=== PATIENT | male | born 2000 | race Caucasian/White ===

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

== ENCOUNTER 2020-08-21 18:24 | Emergency (ER) | payer SELFPAY ==
[~2020-08-21] VITALS: Ht 177.8 cm; Wt 95.3 kg
[2020-08-21 18:39] VITALS: BP 133/65
[2020-08-21] MEDS ORDERED: IBUPROFEN600 MG PO (21:12)
[2020-08-21] MEDS ORDERED: CEPHALEXIN500 M1 PO (21:12)
== END 2020-08-22 00:14 | disposition home or self-care (01) ==
LOC: ED 18:24
DX: L03.031 Cellulitis of right toe (principal)

== ENCOUNTER 2020-12-01 03:39 | Emergency (ER) | payer SELFPAY ==
[~2020-12-01] VITALS: Ht 177.8 cm; Wt 88.5 kg
[~2020-12-01 03:39] MED LIST changes: +CEPHALEXIN500 M1 PO; +IBUPROFEN600 MG PO
[2020-12-01 03:50] VITALS: BP 139/79
== END 2020-12-01 06:40 | disposition home or self-care (01) ==
LOC: ED 03:39
DX: F41.0 Panic disorder [episodic paroxysmal anxiety] (principal); F17.200 Nicotine dependence, unspecified, uncomplicated; Z79.2 Long term (current) use of antibiotics; Z79.899 Other long term (current) drug therapy

== ENCOUNTER 2020-12-04 22:26 | Emergency (ER) | payer SELFPAY ==
[~2020-12-04] VITALS: Ht 177.8 cm; Wt 88.5 kg
[2020-12-04 22:37] VITALS: BP 131/62
[2020-12-04 23:20] LABS: BASO % 0.5 % (0.0-1.0); EOS # 0.1 10*3/uL (0.0-0.4); EOS % 1.1 % (1.0-4.0); HEMATOCRIT 42.5 % (42.0-52.0); LYMPH # 2.8 10*3/uL (1.3-4.4); LYMPH % 33.2 % (27.0-41.0); MEAN CELL VOLUME 83.5 fl (80.0-94.0); MEAN CORPUSCULAR HGB 27.7 pg (27.0-31.0); MEAN CORPUSCULAR HGB CONC 33.2 g/dl (33.0-37.0); MEAN PLATELET VOLUME 10.5 fl (9.6-12.3); MONO # 0.7 10*3/uL (0.1-1.0); NEUT # 4.9 10*3/uL (2.3-7.9); NEUT % 57.1 % (47.0-73.0); PLATELET COUNT AUTOMATED 239 10*3/uL (130-400); RED BLOOD COUNT 5.09 10*6/uL (4.50-5.90); WHITE BLOOD COUNT 8.5 10*3/uL (4.8-10.8)
[2020-12-04 23:26] LABS: BILIRUBIN Negative (Negative); BLOOD Negative (Negative); CLARITY Clear (Clear); COLOR Yellow (Yellow); GLUCOSE Negative (Negative); KETONE Negative (Negative); LEUKO ESTERASE Negative (Negative); NITRITE Negative (Negative); SPECIFIC GRAVITY 1.025 (1.001-1.030)
[2020-12-04 23:35] LABS: RBC 0-2 rbc/hpf (0-2)
[2020-12-04 23:36] LABS: BACTERIA TRACE
[2020-12-04 23:38] LABS: ALBUMIN 3.9 gm/dl (3.1-4.5); ALKALINE PHOSPHATASE 98 U/L (45-117); BUN 19 mg/dl (7-24); CHLORIDE 108 mmol/L (98-107); CREATININE 0.94 mg/dL (0.70-1.30); LIPASE 67 U/L (73-393); POTASSIUM 3.9 mmol/L (3.5-5.1); SGOT/AST 22 IU/L (3-35); SGPT/ALT 35 U/L (12-78); SODIUM 140 mmol/L (136-145); TOTAL PROTEIN 7.7 gm/dL (6.4-8.2)
== END 2020-12-04 23:51 | disposition home or self-care (01) ==
LOC: ED 22:26
PROVIDERS: Nurse Practitioner Family
DX: R10.32 Left lower quadrant pain (principal)

== ENCOUNTER 2021-04-02 06:18 | Emergency (ER) | payer SELFPAY ==
[~2021-04-02] VITALS: Ht 172.7 cm; Wt 74.4 kg
[2021-04-02 06:25] VITALS: BP 130/79
== END 2021-04-02 06:50 | disposition home or self-care (01) ==
LOC: ED 06:18
DX: L25.9 Unspecified contact dermatitis, unspecified cause (principal); Z79.899 Other long term (current) drug therapy

== ENCOUNTER 2021-05-08 14:51 | Emergency (ER) | payer SELFPAY ==
[~2021-05-08] VITALS: Wt 90.7 kg
[2021-05-08 15:08] VITALS: BP 117/74
[2021-05-08] MEDS ORDERED: METHOCARBAMOL500 M1 PO (18:35)
[2021-05-08] MEDS ORDERED: PREDNISONE20 M1 PO (18:35)
== END 2021-05-08 18:44 | disposition home or self-care (01) ==
LOC: ED 14:51
DX: S76.312A Strain of muscle, fascia and tendon of the posterior muscle group at thigh level, left thigh, initial encounter (principal); X50.1XXA Overexertion from prolonged static or awkward postures, initial encounter; Y93.89 Activity, other specified; Y92.89 Other specified places as the place of occurrence of the external cause; Y99.9 Unspecified external cause status

== ENCOUNTER 2021-10-11 11:13 | Emergency (ER) | payer SELFPAY ==
[~2021-10-11] VITALS: Wt 90.7 kg
[~2021-10-11 11:13] MED LIST changes: +METHOCARBAMOL500 M1 PO
[2021-10-11 11:31] VITALS: BP 116/62
[2021-10-11] MEDS ORDERED: AMOXICILLIN500 M2 PO (11:45)
== END 2021-10-11 11:52 | disposition home or self-care (01) ==
LOC: ED 11:13
DX: J03.90 Acute tonsillitis, unspecified (principal)

== ENCOUNTER 2021-10-16 12:41 | Emergency (ER) | payer SELFPAY ==
[2021-10-16 12:52] VITALS: BP 122/78
[2021-10-16 14:04] LABS: BASO # 0.1 10*3/uL (0.0-0.1); BASO % 0.5 % (0.0-1.0); EOS # 0.1 10*3/uL (0.0-0.4); EOS % 0.7 % (1.0-4.0); HEMATOCRIT 43.4 % (42.0-52.0); LYMPH # 3.7 10*3/uL (1.3-4.4); LYMPH % 36.9 % (27.0-41.0); MEAN CELL VOLUME 84.8 fl (80.0-94.0); MEAN CORPUSCULAR HGB 28.7 pg (27.0-31.0); MEAN CORPUSCULAR HGB CONC 33.9 g/dl (33.0-37.0); MEAN PLATELET VOLUME 10.2 fl (9.6-12.3); MONO # 0.9 10*3/uL (0.1-1.0); MONO % 8.5 % (3.0-9.0); NEUT # 5.3 10*3/uL (2.3-7.9); NEUT % 53.2 % (47.0-73.0); PLATELET COUNT AUTOMATED 227 10*3/uL (130-400); RED BLOOD COUNT 5.12 10*6/uL (4.50-5.90); RED CELL DISTRI WIDTH 12.4 % (0-14.5)
[2021-10-16 14:20] LABS: ALBUMIN 4.1 gm/dl (3.1-4.5); ALKALINE PHOSPHATASE 85 U/L (45-117); BUN 17 mg/dl (7-24); CHLORIDE 106 mmol/L (98-107); POTASSIUM 4.2 mmol/L (3.5-5.1); SGOT/AST 35 IU/L (3-35); SGPT/ALT 61 U/L (12-78); SODIUM 138 mmol/L (136-145); TOTAL PROTEIN 8.2 gm/dL (6.4-8.2)
[2021-10-16] MEDS ORDERED: MEDROL DOSEPAK4 MG PO (16:38)
== END 2021-10-16 16:44 | disposition home or self-care (01) ==
LOC: ED 12:41
PROVIDERS: Physician Assistant
DX: J03.90 Acute tonsillitis, unspecified (principal); Z20.822 Contact with and (suspected) exposure to COVID-19

== ENCOUNTER 2023-04-09 10:00 | Emergency (ER) | payer OTHER ==
[2023-04-09] MEDS ORDERED: TRIAMCINOLONE430 GM TD (10:35)
[2023-04-09] MEDS ORDERED: PREDNISONE20 M1 PO (10:35)
== END 2023-04-09 10:26 | disposition home or self-care (01) ==
LOC: ED 10:00
DX: R21 Rash and other nonspecific skin eruption (principal); Z98.890 Other specified postprocedural states

== ENCOUNTER 2023-08-27 16:11 | Emergency (ER) | payer SELFPAY ==
[~2023-08-27] VITALS: Ht 177.8 cm; Wt 95.3 kg
[~2023-08-27 16:11] MED LIST changes: +TRIAMCINOLONE430 GM TD
[2023-08-27 18:11] VITALS: BP 134/71
[2023-08-27] MEDS ORDERED: AMOX-CLAV 875-1 EACH PO (19:13)
== END 2023-08-27 19:25 | disposition home or self-care (01) ==
LOC: ED 16:11
DX: J02.9 Acute pharyngitis, unspecified (principal); Z98.890 Other specified postprocedural states

== ENCOUNTER 2023-10-04 00:25 | Emergency (ER) | payer SELFPAY ==
[~2023-10-04] VITALS: Ht 175.2 cm; Wt 90.7 kg
[~2023-10-04 00:25] MED LIST changes: +AMOX-CLAV 875-1 EACH PO
[2023-10-04 00:40] VITALS: BP 140/77
[2023-10-04 01:08] LABS: BASO % 0.2 % (0.0-1.0); EOS # 0.1 10*3/uL (0.0-0.4); EOS % 0.5 % (1.0-4.0); HEMATOCRIT 46.8 % (42.0-52.0); LYMPH # 1.1 10*3/uL (1.3-4.4); LYMPH % 9.4 % (27.0-41.0); MEAN CELL VOLUME 84.2 fl (80.0-94.0); MEAN CORPUSCULAR HGB 28.8 pg (27.0-31.0); MEAN CORPUSCULAR HGB CONC 34.2 g/dl (33.0-37.0); MEAN PLATELET VOLUME 10.1 fl (9.6-12.3); MONO # 0.8 10*3/uL (0.1-1.0); MONO % 6.8 % (3.0-9.0); NEUT # 9.2 10*3/uL (2.3-7.9); NEUT % 82.9 % (47.0-73.0); PLATELET COUNT AUTOMATED 183 10*3/uL (130-400); RED BLOOD COUNT 5.56 10*6/uL (4.50-5.90); WHITE BLOOD COUNT 11.1 10*3/uL (4.8-10.8)
[2023-10-04 01:22] LABS: ACT PARTIAL THROMBO TIME 29.6 SECONDS (20.0-32.1)
[2023-10-04 01:33] LABS: ALKALINE PHOSPHATASE 98 U/L (46-116); BUN 16 mg/dl (9-23); CHLORIDE 106 mmol/L (98-107); LIPASE 34 U/L (12-53); POTASSIUM 4.1 mmol/L (3.4-5.1); SGPT/ALT 42 U/L (5-49); TOTAL PROTEIN 7.8 gm/dL (6.0-8.0)
== END 2023-10-04 03:38 | disposition home or self-care (01) ==
LOC: ED 00:25
PROVIDERS: Internal Medicine
DX: K52.9 Noninfective gastroenteritis and colitis, unspecified (principal); R11.2 Nausea with vomiting, unspecified; Z98.890 Other specified postprocedural states; Z87.891 Personal history of nicotine dependence

== ENCOUNTER 2024-07-12 20:23 | Emergency (ER) | payer OTHER ==
[~2024-07-12] VITALS: Ht 177.8 cm; Wt 95.3 kg
[2024-07-12] MEDS ORDERED: PREDNISONE20 M1 PO (20:45)
[2024-07-12 20:49] VITALS: BP 123/80
[2024-07-12] MEDS ORDERED: methylPREDNISolone sod succ 125 MG VIAL IM ONE (20:55)
== END 2024-07-12 21:18 | disposition home or self-care (01) ==
LOC: ED 20:23
DX: L23.7 Allergic contact dermatitis due to plants, except food (principal)

== ENCOUNTER 2024-07-14 12:31 | Emergency (ER) | payer OTHER ==
[~2024-07-14] VITALS: Ht 177.8 cm; Wt 95.3 kg
[2024-07-14 12:42] VITALS: BP 132/56
[2024-07-14] MEDS ORDERED: PREDNISONE10 M1 PO (12:48)
[2024-07-14] MEDS ORDERED: HYDROXYZINE HCL25 MG PO (12:48)
[2024-07-14] MEDS ORDERED: PEPCID40 MG PO (12:48)
[2024-07-14] MEDS ORDERED: Kenalog 0.5% Cr15 GM T (12:48)
== END 2024-07-14 13:12 | disposition home or self-care (01) ==
LOC: ED 12:31
DX: L23.7 Allergic contact dermatitis due to plants, except food (principal); Z98.890 Other specified postprocedural states

== ENCOUNTER 2025-04-12 22:36 | Emergency (ER) | payer OTHER ==
[~2025-04-12] VITALS: Ht 172.7 cm; Wt 100.9 kg
[~2025-04-12 22:36] MED LIST changes: +HYDROXYZINE HCL25 MG PO; +Kenalog 0.5% Cr15 GM T; +PEPCID40 MG PO; +PREDNISONE10 M1 PO
[2025-04-12 22:44] VITALS: BP 129/78
[2025-04-12] MEDS ORDERED: Ondansetron Hydrochloride 4 MG/2 ML VIAL IV ONE (22:50)
[2025-04-12] MEDS ORDERED: diphenhydrAMINE hydrochloride 50 MG/ML VIAL IV ONE (22:50)
[2025-04-12] MEDS ORDERED: SODIUM CHLORIDE 0.9% 500 ML IV ONE (22:50)
[2025-04-12] MEDS ORDERED: Metoclopramide Hydrochloride 10 MG/2 ML VIAL IV ONE (22:50)
[2025-04-12 23:17] LABS: BASO % 0.4 % (0.0-1.0); EOS # 0.2 10*3/uL (0.0-0.4); EOS % 1.6 % (1.0-4.0); HEMATOCRIT 43.6 % (42.0-52.0); MEAN CELL VOLUME 84.3 fl (80.0-94.0); MEAN CORPUSCULAR HGB CONC 33.3 g/dl (33.0-37.0); MEAN PLATELET VOLUME 9.9 fl (9.6-12.3); MONO # 0.9 10*3/uL (0.1-1.0); MONO % 9.5 % (3.0-9.0); NEUT # 4.5 10*3/uL (2.3-7.9); NEUT % 46.8 % (47.0-73.0); PLATELET COUNT AUTOMATED 212 10*3/uL (130-400); RED BLOOD COUNT 5.17 10*6/uL (4.50-5.90); RED CELL DISTRI WIDTH 12.5 % (0-14.5); WHITE BLOOD COUNT 9.6 10*3/uL (4.8-10.8)
[2025-04-12 23:38] LABS: ALKALINE PHOSPHATASE 93 U/L (46-116); BUN 18 mg/dl (9-23); CHLORIDE 104 mmol/L (98-107); LIPASE 28 U/L (12-53); POTASSIUM 4.2 mmol/L (3.4-5.1); SGPT/ALT 39 U/L (5-49); TOTAL PROTEIN 7.4 gm/dL (6.0-8.0)
[2025-04-13] MEDS ORDERED: REGLAN10 M1 PO (00:11)
[2025-04-13] MEDS ORDERED: Ondansetron4 MG PO (00:11)
== END 2025-04-13 01:00 | disposition home or self-care (01) ==
LOC: ED 22:36
PROVIDERS: Emergency Medicine
DX: A08.4 Viral intestinal infection, unspecified (principal); R11.2 Nausea with vomiting, unspecified

== ENCOUNTER 2025-07-30 16:34 | Emergency (ER) | payer SELFPAY ==
[~2025-07-30] VITALS: Ht 175.2 cm; Wt 95.3 kg
[~2025-07-30 16:34] MED LIST changes: +Ondansetron4 MG PO; +REGLAN10 M1 PO
[2025-07-30 16:59] VITALS: BP 152/91
[2025-07-30] MEDS ORDERED: Tdap Vaccine 0.5 ML SYR (Adult Vaccine) IM ONE (19:55)
== END 2025-07-30 20:04 | disposition home or self-care (01) ==
LOC: ED 16:34
DX: S61.214A Laceration without foreign body of right ring finger without damage to nail, initial encounter (principal); W45.8XXA Other foreign body or object entering through skin, initial encounter; Y93.89 Activity, other specified; Y92.89 Other specified places as the place of occurrence of the external cause; Y99.8 Other external cause status

== ENCOUNTER 2025-10-26 03:14 | Emergency (ER) | payer SELFPAY ==
[~2025-10-26] VITALS: Ht 177.8 cm; Wt 90.7 kg
[2025-10-26 03:25] VITALS: BP 138/99
[2025-10-26] MEDS ORDERED: MELOXICAM15 MG PO (04:13)
== END 2025-10-26 04:24 | disposition home or self-care (01) ==
LOC: ED 03:14
DX: S93.402A Sprain of unspecified ligament of left ankle, initial encounter (principal); X58.XXXA Exposure to other specified factors, initial encounter; Y93.67 Activity, basketball; Y92.89 Other specified places as the place of occurrence of the external cause; Y99.8 Other external cause status